=== PATIENT | male | born 1935 | race Caucasian/White ===

== ENCOUNTER 2023-11-26 11:25 | Emergency (ER) | payer OTHER, SELFPAY ==
[2023-11-26] VITALS (10 sets, daily range): BP systolic 106–147; BP diastolic 55–70; PULSE 47–72; RESP 17–30; TEMP 36.8; O2SAT 95–98; BMI 24.3
--- NOTE | 2023-11-26 11:34 | DI.RAD.S_ITS ---
PROCEDURE: XR CHEST 1V INDICATIONS: chest pain TECHNIQUE: One view of the chest was acquired. COMPARISON: None. FINDINGS: Surgical changes and devices: None. Lungs and pleura: Lungs are clear. Emphysematous change. No pleural effusions or pneumothorax. Mediastinum: Mediastinal contours appear normal. Heart size is normal. Bones and chest wall: No suspicious bony lesions. Overlying soft tissues appear unremarkable. IMPRESSION: COPD. No evidence acute pulmonary process. Dictated by: Anderson Chen M.D. on 11/26/2023 at 13:32 Approved by: Anderson Chen M.D. on 11/26/2023 at 13:55
--- NOTE | 2023-11-26 11:42 | EKG_ITS ---
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
[2023-11-26 12:27] LABS: Prothrombin Time 11.7 SECONDS (9.4-12.5)
[2023-11-26 12:29] LABS: PTT Partial Thromboplastin Tim 33 SECONDS (25.1-36.5)
[2023-11-26 12:30] LABS: Alanine Aminotransferase 16 IU/L (<50); Albumin 4.1 g/dL (3.5-5.0); Albumin Globulin Ratio 1.6 (1.0-2.8); Alkaline Phosphatase 71 U/L (38-126); Aspartate Aminotransferase 30 IU/L (17-59); BUN Creatinine Ratio 22.8 (6-22); Bilirubin Total 0.5 mg/dL (0.2-1.3); Blood Urea Nitrogen 29 mg/dL (9-20); Calcium 8.7 mg/dL (8.4-10.2); Carbon Dioxide 24 mmol/L (22-32); Chloride 107 mmol/L (98-107); Creatine Kinase 68 U/L (55-170); Estimated Glomerular Filt Rate 54 mL/min (>60); Globulin 2.6 g/dL (1.7-4.1); Glucose 100 mg/dL (80-110); HEMOLYSIS < 15 (0-50); Lipase 126 U/L (23-300); Magnesium 2.4 mg/dL (1.6-2.3); Potassium 4.6 mmol/L (3.4-5.1); Sodium 137 mmol/L (137-145); Total Protein 6.7 g/dL (6.3-8.2)
[2023-11-26 12:31] LABS: Hematocrit 32.4 % (41-53); Hemoglobin 10.7 g/dL (13.5-17.5); Mean Corpuscular Hemoglobin 30.2 PG (26-34); Mean Corpuscular Volume 91.6 fL (80-100); Platelet Count 183 X10^3/uL (150-400); Red Blood Cell Count 3.54 X10^6/uL (4.5-5.9); Red Cell Distribution Width 14.8 % (11.6-14.8)
[2023-11-26 12:39] LABS: Add Manual Diff / Slide Review YES; White Blood Cell Count 42.8 X10^3/uL (4.5-11.0)
[2023-11-26 12:42] LABS: NT-proBNP (BNP-Adult 18+) 502 pg/mL (<450); Troponin I < 0.012 ng/mL (0.01-0.034)
[2023-11-26 13:41] LABS: Anisocytosis 1+; Neutrophils Absolute Manual 4280 /uL (3000-5900); Total Cells Counted 100
--- NOTE | 2023-11-26 14:23 | ED.ARRPALP ---
HPI - Arrhythmia/Palpitations General Chief Complaint: Arrhythmia/Palpitations Stated Complaint: low pulse Time Seen by Provider: 11/26/23 14:23 Source: patient Mode of arrival: Ambulatory History of Present Illness HPI narrative: Patient is a 88-year-old male history of hypertension new diagnosis of CLL with known bradycardia presenting today with low heart rate. He reports that he has had a low heart rate since September. He has worn a ZIO patch and just took it off 2-3 weeks ago. He has not passed out. He does feel a little weak. He is actually scheduled to have a cardiology appointment in 5 days. He continues to be asymptomatic today. However they do check his heart rate every day. He reports that it was 48 yesterday and is 40 again today. They were encouraged by medics and family friends that if it continued to be 48 and he should go be evaluated. However he has not passed out he denies dizziness he denies weakness denies shortness of breath denies any sort of fever. He is being worked up for a CLL with [facility] in [place]. Related Data Home Medications Medication Instructions Recorded Confirmed ascorbic acid (vitamin C) 500 mg 500 mg PO DAILY 11/26/23 11/26/23 capsule ferrous sulfate 325 mg (65 mg 325 mg PO DAILY 11/26/23 11/26/23 iron) tablet finasteride 5 mg tablet 5 mg PO DAILY 11/26/23 11/26/23 lisinopril 10 mg tablet 10 mg PO DAILY 11/26/23 11/26/23 tamsulosin 0.4 mg capsule 0.8 mg PO DAILY 11/26/23 11/26/23 Allergies Allergy/AdvReac Type Severity Reaction Status Date / Time No Known Drug Allergies Allergy Verified 11/26/23 11:34 Patient History Social History Smoking Status: Former smoker Smoking Status: Former smoker alcohol intake frequency: 0-2 drinks per day Substance Use Type: does not use Exam Initial Vital Signs Initial Vital Signs: Vital Signs Temperature 98.2 F 11/26/23 11:29 Pulse Rate 47 L 11/26/23 11:29 Respiratory Rate 18 11/26/23 11:29 Blood Pressure 106/55 L 11/26/23 11:29 Pulse Oximetry 96 11/26/23 11:29 Oxygen Delivery Method Room Air 11/26/23 11:29 GENERAL: Alert week 88-year-old male and in no acute distress. HEENT: Head atraumatic,EOMI, pupils reactive, face symmetric, moist mucous membranes CARDIOVASCULAR: Regular rate and rhythm without murmurs, rubs or gallops. RESPIRATORY: Breath sounds equal bilaterally, no wheezes rales or rhonchi. ABDOMEN: Soft, nontender. Normoactive bowel sounds all 4 quadrants. No guarding or rebound. EXTREMITIES: Normal range of motion, no clubbing or edema. Neurovascularly intact NEUROLOGICAL: Alert and oriented x4.Normal gait and speech. Cranial nerves II through XII grossly intact. SKIN: Warm, dry, no laceration, no petechiae, no rashes or lesions. Course Orders Ordered: ED Orders 11/26/23 11:34 XR chest 1V Stat EKG-12 Lead Stat 11/26/23 11:45 Complete Blood Count AUTO DIFF Stat Comprehensive Metabolic Panel Stat Lipase Stat Magnesium Stat NT-proBNP (BNP-Adult 18+) Stat PTT Partial Thromboplastin Luigi Stat Prothrombin Time INR Stat Troponin & CK Cardiac Panel Stat Vital Signs Vital signs: Vital Signs - 8 hr 11/26/23 11:29 11/26/23 12:32 11/26/23 12:33 Temperature 98.2 F Pulse Rate 47 L 53 L Respiratory Rate 18 30 H Blood Pressure 106/55 L 147/70 H Pulse Oximetry 96 Oxygen Delivery Method Room Air 11/26/23 12:33 11/26/23 13:00 11/26/23 13:01 Temperature Pulse Rate 57 L 53 L Respiratory Rate 30 H 17 Blood Pressure 112/55 L Pulse Oximetry 97 95 Oxygen Delivery Method 11/26/23 13:01 11/26/23 13:30 11/26/23 14:00 Temperature Pulse Rate 54 L 72 Respiratory Rate 19 Blood Pressure 119/57 L Pulse Oximetry 95 Oxygen Delivery Method 11/26/23 14:00 Temperature Pulse Rate 49 L Respiratory Rate 18 Blood Pressure Pulse Oximetry 96 Oxygen Delivery Method MDM - Arrhythmia/Palpitations Lab Data 11/26/23 11:45 11/26/23 11:45 Labs: Lab Results 11/26/23 Range/Units 11:45 WBC 42.8 H* (4.5-11.0) X10^3/uL RBC 3.54 L (4.5-5.9) X10^6/uL Hgb 10.7 L (13.5-17.5) g/dL Hct 32.4 L (41-53) % MCV 91.6 (80-100) fL MCH 30.2 (26-34) PG MCHC 33.0 (30-36) % RDW 14.8 (11.6-14.8) % Plt Count 183 (150-400) X10^3/uL Neut % (Auto) Not Reportable Lymph % (Auto) Not Reportable Clinch % (Auto) Not Reportable Eos % (Auto) Not Reportable Baso % (Auto) Not Reportable Lymph # (Auto) Not Reportable Clinch # (Auto) Not Reportable Baso # (Auto) Not Reportable Total Counted 100 Seg Neutrophils % 10.0 L (38-70) % Lymphocytes % (Manual) 68.0 H (25-45) % Atypical Lymphs % 22.0 H ( - 0) % Neutrophils # (Manual) 4280 (5804-1664) /uL RBC Morphology See below Anisocytosis 1+ H PT 11.7 (9.4-12.5) SECONDS INR 1.0 (0.9-1.3) APTT 33 (25.1-36.5) SECONDS Sodium 137 (137-145) mmol/L Potassium 4.6 (3.4-5.1) mmol/L Chloride 107 (98-107) mmol/L Carbon Dioxide 24 (22-32) mmol/L BUN 29 H (9-20) mg/dL Creatinine 1.27 H (0.66-1.25) mg/dL Estimated GFR 54 L (>60) mL/min BUN/Creatinine Ratio 22.8 H (6-22) Glucose 100 (80-110) mg/dL Calcium 8.7 (8.4-10.2) mg/dL Magnesium 2.4 H (1.6-2.3) mg/dL Total Bilirubin 0.5 (0.2-1.3) mg/dL AST 30 (17-59) IU/L ALT 16 (<50) IU/L Alkaline Phosphatase 71 (38-126) U/L Total Creatine Kinase 68 (55-170) U/L Troponin I < 0.012 (0.01-0.034) ng/mL NT-Pro-B Natriuret Pep 502 H (<450) pg/mL Total Protein 6.7 (6.3-8.2) g/dL Albumin 4.1 (3.5-5.0) g/dL Globulin 2.6 (1.7-4.1) g/dL Albumin/Globulin Ratio 1.6 (1.0-2.8) Lipase 126 (23-300) U/L Imaging Data Chest x-ray: Radiologist's Impresson: PROCEDURE: XR CHEST 1V INDICATIONS: chest pain TECHNIQUE: One view of the chest was acquired. COMPARISON: None. FINDINGS: Surgical changes and devices: None. Lungs and pleura: Lungs are clear. Emphysematous change. No pleural effusions or pneumothorax. Mediastinum: Mediastinal contours appear normal. Heart size is normal. Bones and chest wall: No suspicious bony lesions. Overlying soft tissues appear unremarkable. IMPRESSION: COPD. No evidence acute pulmonary process. Dictated by: Anderson Chen M.D. on 11/26/2023 at 13:32 Approved by: Anderson Chen M.D. on 11/26/2023 at 13:55 ECG Data Attestation: I personally reviewed and interpreted this ECG as follows: Prior ECG tracings: not available for review Interpretation: Sinus rhythm rate 63 OH interval 204 QRS 178 QTC 472 PVC noted MDM Narrative Medical decision making narrative: Patient jaime 88-year-old male presents today with bradycardia. His heart rate is consistently in the 40s and high 40s. He is completely asymptomatic and has been. Has been a little weak and fatigued also recently diagnosed with CLL. He currently has a WBC count 42 which is known to him. He has already had a ZIO patch which per is benign. I have an appointment with Cardiology next week. There is no evidence of AV christophe block he is asymptomatic without syncopal episodes. Further blood work has been reviewed WBC 42.8, hemoglobin 10.7 hematocrit 32.4, sodium 137 potassium 4.6, chloride 0 7, carbon dioxide 24, BUN 29, creatinine 1.2, troponin negative, BNP 502 Chest x-ray has been reviewed does show COPD EKG has been reviewed as above At this time with asymptomatic bradycardia no need for any further emergency department workup. He has cardiology follow-up few days. Long discussion with patient and in regards to symptoms rather than numbers. They voiced understanding. Discharge Plan Departure Patient Disposition: Home Clinical Impression: Asymptomatic bradycardia Instructions: Bradycardia Activity Restrictions/Additional Instructions: *You have been diagnosed with asymptomatic bradycardia *What to do: At this time please follow-up with Cardiology as scheduled next week. Continue to monitor with symptoms of dizziness lightheadedness passing out chest *Continue to take medications as directed *Follow up with your primary care provider in 2-3 days or call [phone] *Return to ER if you should have above symptoms or any new, worsening or concerning symptoms Prescriptions: No Action tamsulosin 0.4 mg capsule 0.8 mg PO DAILY ferrous sulfate 325 mg (65 mg iron) Tablet 325 mg PO DAILY lisinopril 10 mg tablet 10 mg PO DAILY finasteride 5 mg tablet 5 mg PO DAILY ascorbic acid (vitamin C) 500 mg Capsule 500 mg PO DAILY Stand Alone Forms: Patient Portal/API
== END 2023-11-26 15:05 | disposition home or self-care (01) ==
PROVIDERS: Emergency Provider Emergency Medicine
DX: R00.1 Bradycardia, unspecified (principal)
CPT/HCPCS: 36415; 71045; 80053; 82550; 83690; 83735; 83880; 84484; 85007; 85025; 85610; 85730; 93005; 99283; 99284

== ENCOUNTER → 2024-05-04 09:14 | Outpatient (CLI) | payer OTHER, SELFPAY | LOC: RESP 09:15 | PROVIDERS: PCP Family Medicine; Referring Provider Family Medicine; Visit Provider Family Medicine | DX: J44.9 Chronic obstructive pulmonary disease, unspecified (principal); Z87.891 Personal history of nicotine dependence; R94.2 Abnormal results of pulmonary function studies | CPT/HCPCS: 94060; 94726; 94729 ==

== ENCOUNTER → 2024-05-25 14:52 | Outpatient (CLI) | payer OTHER, SELFPAY ==
--- NOTE | 2024-05-25 14:53 | DI.CT.S_ITS ---
PROCEDURE: CT CHEST WO CON INDICATIONS: SOB, pulmonary air trapping, former cigarette smoker TECHNIQUE: Noncontrast 5 mm thick sections acquired from the pulmonary apices to the posterior costophrenic angles. 1 mm lung window, 5 mm thick coronal and sagittal and 7 mm axial MIP reformats were then acquired. For radiation dose reduction, the following was used: automated exposure control, adjustment of mA and/or kV according to patient size. COMPARISON: [facility], CR, XR CHEST 1V, 11/26/2023, 11:50. FINDINGS: Image quality: Diagnostic. Lower Neck: No enlarged lymph nodes. Thyroid: No thyroid nodules which require sonographic follow up, per consensus guidelines. Axillae: No enlarged lymph nodes. Chest Wall: Gynecomastia. Bones: No suspicious osseous lesion. Lungs and Pleura: No pneumothorax or pleural effusions. No acute airspace opacity. Mild emphysematous change. A few small pulmonary nodules. For example: -Left lung base 0.6 cm, (3/266). -Right lower lobe 0.4 cm, (3/243). -Right upper lobe subpleural 0.4 cm, (3/133). Heart: Heart size is within normal limits. Three-vessel coronary artery calcifications. No pericardial effusion. Thoracic Vessels: Ascending aorta measures approximately 3.8 cm. Mediastinum and Florina: No enlarged lymph nodes. Esophagus: No wall thickening. No hiatal hernia. Upper Abdomen: Visualized portions of the spleen appear prominent. Small area of nodular thickening at the right peritoneal at the right upper quadrant measuring 1.1 cm, (2/110). No free fluid in the upper abdomen. No adrenal nodule. IMPRESSION: 1. No acute airspace opacity. Mild emphysematous change. 2. A few small pulmonary nodules. Largest at the left lower lobe measuring 0.6 cm. -Consider follow-up CT chest in 6 months. 3. Spleen appears prominent. Small area of peritoneal thickening in the right upper quadrant. Clinical significance of this finding is uncertain. -Recommend comparison with prior imaging if available. -Otherwise this could be further evaluated with CT abdomen pelvis with IV contrast. Dictated by: Jm Hyatt M.D. on 05/26/2024 at 10:26 Approved by: Jm Hyatt M.D. on 05/26/2024 at 10:40
== END ==
LOC: CT 14:52
PROVIDERS: PCP Family Medicine; Referring Provider Family Medicine; Visit Provider Family Medicine
DX: I25.10 Atherosclerotic heart disease of native coronary artery without angina pectoris (principal); R91.8 Other nonspecific abnormal finding of lung field; R06.02 Shortness of breath; R09.89 Other specified symptoms and signs involving the circulatory and respiratory systems; N62 Hypertrophy of breast; Z87.891 Personal history of nicotine dependence
CPT/HCPCS: 71250